=== PATIENT | male | born 1940 | race Caucasian/White ===

== ENCOUNTER 2018-04-02 09:49 | Emergency (ER) | payer MEDICARE ==
[~2018-04-02] VITALS: Ht 193 cm; Wt 79.0 kg
[~2018-04-02 09:49] MED LIST: ALLOPURINOL300 MG PO; ASPIRIN325 MG PO; BACTRIM DS1 TAB PO; CARVEDILOL12.5 MG PO; CRESTOR10 MG PO; LISINOPRIL20 M1 PO; PLAVIX75 MG PO
[2018-04-02 10:28] LABS: IMMATURE GRANULOCYTES 0.4 % (0.0-1.0); MEAN CELL VOLUME 91.3 fL CALC (80.0-100.0); MEAN CORPUSCULAR HGB 29.5 pG CALC (26.0-32.0); MEAN CORPUSCULAR HGB CONC 32.3 g/L CALC (32.0-36.0); NEUT# 14.67 thou/uL (1.82-7.42); RED BLOOD COUNT 3.8 mill/uL (4.70-6.10); RED CELL DISTRI WIDTH 15.3 % (11.5-15.5)
[2018-04-02 10:30] LABS: HEMATOCRIT 34.7 % (39.0-50.0); HEMOGLOBIN 11.2 g/dl (14.0-18.0)
[2018-04-02 11:06] LABS: URINE BILIRUBIN - DIPSTICK NEGATIVE (NEGATIVE); URINE BLOOD DIPSTICK TRACE-INTACT (NEGATIVE); URINE COLOR YELLOW; URINE GLUCOSE - DIPSTICK 100 mg/dL (NEGATIVE); URINE KETONE NEGATIVE (NEGATIVE); URINE LEUK ESTERASE NEGATIVE (NEGATIVE); URINE NITRITE - DIPSTICK NEGATIVE (Negative); URINE PROTEIN - DIPSTICK TRACE mg/dL (NEG-TRACE)
[2018-04-02 11:06] LABS: ALBUMIN 3.6 g/dL (3.2-5.0); ALKALINE PHOSPHATASE 81 u/l (38-126); ANION GAP 13 (6-22 (CALC)); BILIRUBIN, TOTAL 0.9 mg/dL (0.0-1.4); BUN 15 mg/dL (8-23); BUN/CREATININE RATIO 12 (12-20 (CALC)); CARBON DIOXIDE 23 mmol/l (22-30); CHLORIDE 104 mmol/l (95-108); CREATININE 1.3 mg/dL (0.7-1.3); GFR 54 ML/MIN (>=60 (CALC)); GFR FOR AFR.AMER. > 60 ML/MIN (>=60 (CALC)); POTASSIUM 4.1 mmol/l (3.5-5.1); SGOT/AST 25 u/l (19-48); SGPT/ALT 34 u/l (11-66); SODIUM 136 mmol/l (137-146); TOTAL PROTEIN 6.7 g/dL (6.3-8.2)
[2018-04-02 11:12] LABS: PROTHROMBIN TIME 11.2 SECONDS (9.0-12.5)
[2018-04-02 11:15] LABS: URINE CLARITY CLEAR
[2018-04-02] MEDS ORDERED: ATORVASTATIN CA40 MG PO (11:25)
[2018-04-02] MEDS ORDERED: TAMSULOSIN HCL0.4 MG PO (11:25)
[2018-04-02] MEDS ORDERED: FINASTERIDE5 MG PO (11:25)
[2018-04-02] MEDS ORDERED: MAXZIDE-2537.5 MG/TA PO (11:26)
[2018-04-02 13:11] VITALS: BP 174/78
== END 2018-04-02 13:11 ==
LOC: ED 09:49
PROVIDERS: Emergency Medicine
DX: S72.25XA Nondisplaced subtrochanteric fracture of left femur, initial encounter for closed fracture (principal); W01.0XXA Fall on same level from slipping, tripping and stumbling without subsequent striking against object, initial encounter; Y93.89 Activity, other specified; Y92.009 Unspecified place in unspecified non-institutional (private) residence as the place of occurrence of the external cause; I10 Essential (primary) hypertension; Z86.73 Personal history of transient ischemic attack (TIA), and cerebral infarction without residual deficits